=== PATIENT | female | born 1965 | race Caucasian/White ===

== ENCOUNTER 2022-03-11 22:04 | Emergency (ER) | payer SELFPAY ==
[2022-03-11 22:40] LABS: BASOPHILS % (AUTO) 0.1 %; HCT - HEMATOCRIT 45.7 % (37.0-47.0); HGB - HEMOGLOBIN 15.9 g/dL (12.0-16.0); LYMPHOCYTES # (AUTO) 1.4 10^3/uL (1.5-3.5); LYMPHOCYTES % (AUTO) 9.9 %; MEAN CORPUSCULAR HGB CONC 34.8 g/dL (32.0-36.0); MEAN CORPUSCULAR VOLUME 94.8 fL (81.0-99.0); MEAN PLATELET VOLUME 8.5 fL (7.9-10.8); MONOCYTES # (AUTO) 0.8 10^3/uL (0.0-1.0); MONOCYTES % (AUTO) 5.9 %; NEUTROPHILS # (AUTO) 11.9 10^3/uL (1.5-6.6); NEUTROPHILS % (AUTO) 83.7 %; PLT - PLATELET COUNT 256 10^3/uL (130-450); RED BLOOD COUNT 4.82 10^6/uL (4.20-5.40); RED CELL DISTRIBUTION WIDTH 12.7 % (12.0-15.0); WHITE BLOOD COUNT 14.2 x10^3/uL (4.8-10.8)
[2022-03-11] MEDS ORDERED: ONDANSETRON 4 MG/2 ML VIAL IVP STA (22:54)
[2022-03-11 23:21] LABS: ALBUMIN 4.4 g/dL (3.2-5.5); ALBUMIN/GLOBULIN RATIO 1.4 (1.0-2.2); BILIRUBIN,TOTAL 0.8 mg/dL (0.2-1.0); CALCIUM 9.9 mg/dL (8.5-10.3); CREATININE 0.6 mg/dL (0.4-1.0); POTASSIUM 3.5 mmol/L (3.5-5.0); TOTAL PROTEIN 7.6 g/dL (6.7-8.2)
--- NOTE | 2022-03-12 00:12 | XRAY Report ---
PROCEDURE: Chest 1 View X-Ray INDICATIONS: Chest Pain TECHNIQUE: One view of the chest was acquired. COMPARISON: None. FINDINGS: Surgical changes and devices: None. Lungs and pleura: No pleural effusions or pneumothorax. Lungs are clear. Mediastinum: Mediastinal contours appear normal. Heart size is normal. Bones and chest wall: No suspicious bony lesions. Overlying soft tissues appear unremarkable. IMPRESSION: 1. No acute cardiopulmonary disease. Reviewed by: Temo Holcomb MD on 03/12/2022 12:10 AM PDT Approved by: Temo Holcomb MD on 03/12/2022 12:10 AM PDT Station ID: [id number]
--- NOTE | 2022-03-12 00:34 | CT Report ---
PROCEDURE: Abdomen/Pelvis WO INDICATIONS: periumbilical abd pain TECHNIQUE: Noncontrast 5 mm thick sections acquired from the diaphragms to the symphysis. 5 mm coronal and sagi ttal reformats were then performed. For radiation dose reduction, the following was used: automated exposure control, adjustment of mA and/or kV according to patient size. COMPARISON: None. FINDINGS: Image quality: Excellent. Lung bases:There is mild atelectasis. Heart: Heart is normal in size. ABDOMEN: Liver:Noncontrast evaluation demonstrates no discrete mass. Gallbladder:There is a peripherally calcified gallstone within a nondistended gallbladder. No defini te gallbladder wall thickening or pericholecystic fluid. Biliary ducts:There is biliary ductal dilatation, with the common bile duct measuring approximately 1.2 cm. Evaluation is limited in the absence of intravenous contrast. No calcified obstructing stone visualized. Pancreas:No ectatic duct dilatation. No peripancreatic fat stranding or fluid collections. Spleen: Normal in size. Adrenal Glands: No adrenal nodules. Kidneys and Ureters: No hydronephrosis. Stomach and Bowel: Stomach, small bowel loops, and colon are normal in caliber and wall thickness. T he appendix is normal in appearance. Peritoneum: No abnormal intraperitoneal fluid. No free air. Ventral Wall: No hernia. Abdominal Nodes: No retroperitoneal or mesenteric adenopathy by size criteria. Vessels: Aorta and inferior vena cava are normal in size. PELVIS: Pelvic Organs: Unremarkable. Bladder: Unremarkable. Pelvic Nodes: No enlarged lymph nodes. Miscellaneous: No inguinal hernias are seen. Bones: Visualized osseous structures demonstrate no suspicious focal lesions. IMPRESSION: 1. Cholelithiasis without CT evidence of cholecystitis. 2. Biliary ductal dilatation without a calcified obstructing common duct stone visualized. Further ev aluation may be obtained with ultrasound or MRCP. Reviewed by: Temo Holcomb MD on 03/12/2022 12:33 AM PDT Approved by: Temo Holcomb MD on 03/12/2022 12:33 AM PDT Station ID: [id number]
[2022-03-12] MEDS ORDERED: diphenhydrAMINE INJ 50 MG/ML VIAL IVP STA (01:28)
[2022-03-12] MEDS ORDERED: SODIUM CHLORIDE 0.9% 1,000 ML IV STA (01:30)
[2022-03-12 01:37] VITALS: BP 148/78
--- NOTE | 2022-03-12 01:52 | ED Physician Documentation ---
PD HPI ABD PAIN - Stated complaint Stated Complaint: CHEST/ABD PX,SWEATS,NAUSEA - Chief complaint Chief Complaint: Cardiac - History obtained from History obtained from: Patient - Additional information Additional information: Patient is a 56-year-old female with a history of hypertension presenting for evaluation of mid abdominal pain rating up to her chest with associated nausea. Her symptoms started around 4 PM after eating salmon that she had made yesterday. No other family members ate the same food. She denies any emesis. The pain is sharp. Nothing makes it better or worse. She denies a history of similar symptoms in the past. She denies diarrhea. She Had a normal bowel movement yesterday. She reports the pain was severe up until a short time Ago while waiting for a room At which time the pain has improved. She is unsure of anything that made the pain better. She denies trouble breathing, fever, cough, dysuria. Review of Systems Constitutional: denies: Fever Nose: denies: Congestion Throat: denies: Sore throat Cardiac: denies: Chest pain / pressure Respiratory: denies: Dyspnea GI: reports: Abdominal Pain, Nausea. denies: Vomiting, Diarrhea : denies: Dysuria Musculoskeletal: denies: Back pain Neurologic: denies: Headache PD PAST MEDICAL HISTORY - Past Medical History Cardiovascular: Hypertension - Allergies Allergies/Adverse Reactions: Allergies Allergy/AdvReac Type Severity Reaction Status Date / Time No Known Drug Allergies Allergy Verified 03/11/22 22:19 PD ED PE NORMAL - General General: Alert and oriented X 3, No acute distress, Well developed/nourished - HEENT HEENT: Atraumatic, Moist mucous membranes - Neck Neck: Supple, no meningeal sign - Cardiac Cardiac: RRR, No murmur, Strong equal pulses - Respiratory Respiratory: No respiratory distress, Clear bilaterally - Abdomen Abdomen: Normal bowel sounds, Soft, Non distended. No: Non tender (Periumbilical And epigastric tenderness to palpation) - Back Back: No CVA TTP - Derm Derm: Warm and dry - Extremities Extremities: No edema - Neuro Neuro: Normal speech Results - Vitals Vitals: Vital Signs - 24 hr 03/11/22 03/11/22 03/12/22 22:11 22:49 00:00 Temperature 36.4 C L 36.5 C Heart Rate 62 62 64 Respiratory 14 22 18 Rate Blood Pressure 143/88 H 155/90 H 140/88 H O2 Saturation 99 98 98 03/12/22 01:37 Temperature Heart Rate 62 Respiratory 16 Rate Blood Pressure 148/78 H O2 Saturation 99 Oxygen O2 Source Room air - EKG (time done) 2219 Rate: Rate (enter#) (57) Rhythm: NSR Intervals: No: Prolonged QT (QTC 440) Ischemia: No: ST elevation c/w ischemia - Labs Labs: Laboratory Tests 03/11/22 03/11/22 03/11/22 22:30 22:30 22:30 WBC 14.2 H RBC 4.82 Hgb 15.9 Hct 45.7 MCV 94.8 MCH 33.0 H MCHC 34.8 RDW 12.7 Plt Count 256 MPV 8.5 Neut # (Auto) 11.9 H Lymph # (Auto) 1.4 L Duval # (Auto) 0.8 Eos # (Auto) 0.0 Baso # (Auto) 0.0 Absolute Nucleated RBC 0.00 Nucleated RBC % 0.0 Sodium 138 Potassium 3.5 Chloride 101 Carbon Dioxide 28 Anion Gap 9.0 BUN 15 Creatinine 0.6 Estimated GFR (MDRD) 103 Glucose 191 H Calcium 9.9 Total Bilirubin 0.8 AST 335 H ALT 172 H Alkaline Phosphatase 126 H Troponin I High Sens 4.2 Total Protein 7.6 Albumin 4.4 Globulin 3.2 Albumin/Globulin Ratio 1.4 Lipase 1932 H PD MEDICAL DECISION MAKING - ED course Complexity details: reviewed results, re-evaluated patient, d/w patient, d/w family ED course: Patient presenting for evaluation of mid abdominal pain with radiation. Pain has significantly improved from onset. Vital signs are stable. She is overall well-appearing. She has mild generalized abdominal tenderness With no peritonitis. She declines need for pain medication.Labs reviewed and significant for mild leukocytosis, abnormal LFTs and elevated lipase. She denies alcohol consumption. CT was obtained demonstrating a dilated common bile duct. There are stones in the gallbladder but no signs of cholecystitis. On repeat exam,She has no tenderness on palpation including on deep palpation of the right upper quadrant. Discussed case with on-call surgeon who feels that she likely passed a stone and can be safely discharged if her pain has resolved. Patient counseled on need for close follow-up with outpatient ultrasound as well as strict return precautions. 0142 - Discussed with Dr. Perez. Reviewed presentation, labs Including abnormal LFTs and lipase and leukocytosis with CT report And that patient has been pain- free since being in the emergency department. Dr. Perez feels that patient has likely passed a stone And that lab abnormalities will likely improve. Patient does not require emergent surgery or procedure. If patient's symptoms were to recur then she would need urgent reevaluation to see if her gallbladder needs to be removed at that time. However she should have an ultrasound done as an outpatient. Departure - Departure Disposition: Home, Self Care Clinical Impression: Elevated lipase, Elevated liver enzymes Gallstone Qualifiers: Cholecystitis presence: without cholecystitis Biliary obstruction: without biliary obstruction Qualified Code(s): K80.20 - Calculus of gallbladder without cholecystitis without obstruction Condition: Stable Instructions: ED Gallstone W Biliary Colic Comments: You were evaluated for abdominal pain. Your labs showed abnormalities in regards to your liver testing as well as your lipase which is a marker of your pancreas. A CT scan was done which shows stones in your gallbladder and an enlarged common bile duct. We reviewed your case with our surgeon who feels that you have likely passed a stone and that because your pain has resolved you do not need your gallbladder out emergently. You should still have an ultrasound of your gallbladder and liver but this can be done as an outpatient. You may need to have your gallbladder out soon.Please follow-up with your primary care doctor soon as possible. However if you have any return of your pain, fevers, vomiting or any other concerns then you need to Return again to the emergency department. CT REPORT IMPRESSION: 1. Cholelithiasis without CT evidence of cholecystitis. 2. Biliary ductal dilatation without a calcified obstructing common duct stone visualized. Further evaluation may be obtained with ultrasound or MRCP Discharge Date/Time: 03/12/22 02:06
== END 2022-03-12 02:06 | disposition home or self-care (01) ==
LOC: ED 22:04
DX: K80.20 Calculus of gallbladder without cholecystitis without obstruction (principal)
CPT/HCPCS: 36415; 71045; 74176; 80053; 83690; 84484; 85025; 93005; 96374; 96375; 99284; J1200